=== PATIENT | male | born 1985 | race African-American/Black ===

== ENCOUNTER 2016-12-08 09:27 | Emergency (ER) | payer MEDICAID, OTHER ==
[~2016-12-08] VITALS: Ht 182.9 cm; Wt 122.5 kg
[~2016-12-08 09:27] MED LIST: NORCO 5-325 TA1 EACH ORAL
[2016-12-08] MEDS ORDERED: NKM (09:41)
[2016-12-08 10:01] LABS: APPEARANCE,URINE SLIGHTLY CLOUDY; KETONES,URINE NEGATIVE (NEGATIVE); LEUKOCYTE ESTERASE ,URINE 1+ (NEGATIVE); NITRITE,URINE NEGATIVE (NEGATIVE); PH,URINE 5 (4.5-8.0); PROTEIN,URINE 2+ (NEGATIVE); UROBILINOGEN,URINE NORMAL MG/DL (0.0-1.0)
[2016-12-08 10:12] LABS: BACTERIA,URINE FEW /HPF; RBC,URINE 60-80 /HPF (0 - 0); SQUAMOUS EPITHELIAL CELL,UR OCCASIONAL /LPF (NONE/OCC)
[2016-12-08] MEDS ORDERED: Norco 5mg/325mg tab ORAL ONE (10:15)
[2016-12-08] MEDS ORDERED: DOXYCYCLINE MO100 MG ORAL (11:48)
[2016-12-08] MEDS ORDERED: ACETAMINOPHEN-1 EAC1 ORAL (11:48)
[2016-12-08 12:06] VITALS: BP 157/102
--- NOTE | 2016-12-08 14:29 | Emergency Room Report ---
History of Present Illness General Chief Complaint: Male Urogenital Problems Source: Patient, Medical Record Present Illness HPI 31-year-old male presents to ED with right-sided testicular pain. States pain started this morning during intercourse. Patient states the pain is a 10 out of 10, sharp, nonradiating. No other aggravating or relieving factors. Patient states last time he had similar presentation he had epididymitis. Was discharged on antibiotics. Denies any discharge or burning urination. No other aggravating or relieving factors. Denies any other associated symptoms Allergies: Coded Allergies: METOCLOPRAMIDE (Unverified Allergy, Intermediate, anxiety, 04/22/14) PENICILLINS (Unverified Allergy, Unknown, 04/22/14) Patient History Past Medical History: none Past Surgical History: none Pertinent Family History: none Social History: Denies: alcohol use, drug use, smoking Immunizations: UTD Reviewed Nursing Documentation: PMH: Agreed, PSxH: Agreed Review of Systems All Other Systems: negative except mentioned in HPI Physical Exam Vital Signs Date Time Temp Pulse Resp B/P Pulse Ox O2 Delivery O2 Flow Rate FiO2 12/08/16 09:38 98.1 113 20 128/101 98 Room Air Sp02 EP Interpretation: reviewed, normal General Appearance: alert, GCS 15, non-toxic, mild distress Head: normocephalic Eyes: bilateral eye PERRL, bilateral eye normal inspection ENT: normal ENT inspection Neck: normal inspection Respiratory: normal inspection Cardiovascular #1: normal inspection Gastrointestinal: normal bowel sounds, non tender, soft, non-distended, no guarding, no rebound Rectal: deferred Genitourinary: other - R testicular pain Musculoskeletal: back normal Neurologic: normal inspection Psychiatric: judgement/insight normal, memory normal, mood/affect normal, no suicidal/homicidal ideation Skin: normal inspection Lymphatic: normal inspection Medical Decision Making Diagnostic Impression: Primary Impression: Epididymitis Additional Impression: Opiate dependence Qualified Codes: F11.29 - Opioid dependence with unspecified opioid-induced disorder ER Course A 31-year-old male presents ED complaining of right testicular pain Differential-epididymitis, testicular torsion, orchitis Patient placed in stretcher. After initial history and physical I ordered UA, pain medications and scrotal ultrasound UA shows some bacteria, some blood Scrotal ultrasound shows epididymal cysts, varicocele, hydrocele. No evidence of torsion On reassessment pain is improved. On discharge patient is requesting Horatio. I reviewed [facility] and patient has multiple prescriptions for narcotic medications being prescribed to him every 2-3 days over the course of several months Diagnosis-epididymitis, opioid dependence Discharged with prescription for doxycycline. Followup with PMD. Return to ED if symptoms recur or worsen Labs Test 12/08/16 09:37 Urine Color Brown Urine Appearance Slightly cloudy Urine pH 5 (4.5-8.0) Urine Specific [place] 1.025 (1.005-1.035) Urine Protein 2+ (NEGATIVE) Urine Glucose (UA) Negative (NEGATIVE) Urine Ketones Negative (NEGATIVE) Urine Occult Blood 5+ (NEGATIVE) Urine Nitrite Negative (NEGATIVE) Urine Bilirubin Negative (NEGATIVE) Urine Urobilinogen Normal MG/DL (0.0-1.0) Urine Leukocyte Esterase 1+ (NEGATIVE) Urine RBC 60-80 /HPF (0 - 0) Urine WBC 2-4 /HPF (0 - 0) Urine Squamous Epithelial Cells Occasional /LPF Urine Bacteria Few /HPF (NONE) CT/MRI/US Diagnostic Results CT/MRI/US Diagnostic Results : Imaging Test Ordered: scrotal US Impression varicocele, hydrocele. epididymal cyst. no torsion Last Vital Signs Date Time Temp Pulse Resp B/P Pulse Ox O2 Delivery O2 Flow Rate FiO2 12/08/16 12:06 94 18 157/102 98 Room Air 12/08/16 12:06 97.1 Status: improved Disposition: HOME, SELF-CARE Condition: Stable Scripts Acetaminophen With Codeine (T#3) (TYLENOL #3 TAB*) Y Tab 1 TAB ORAL Q8H Y for For Pain, #20 TAB Prov: JOAQUIM SPENCER M.D. 12/08/16 Doxycycline Monohydrate* (DOXYCYCLINE MONOHYDRATE*) 100 Mg Capsule 100 MG ORAL Q12H, #14 CAP 0 Refills Prov: JOAQUIM SPENCER M.D. 12/08/16 Patient Instructions: Epididymitis JOAQUIM SPENCER M.D. Dec 08, 2016 14:29
--- NOTE | 2016-12-08 15:00 | Diagnostic Imaging Report ---
Indications: Right testicular pain Technique: Grayscale and duplex images of the scrotum Comparison:None Findings:The right testicle measures 3.3cm in length. It demonstrates normal echogenicity. Normal Doppler flow. There is a small cyst within the epididymal head. Is a small varicocele The left testicle measures 3.6 cm in length. It demonstrates normal echogenicity and normal Doppler flow. Normal epididymis. There is a small varicocele and small hydrocele Impression: No acute abnormality Bilateral small varicoceles Small left hydrocele Cyst within the right epididymal head, either a small spermatocele or epididymal cyst
== END 2016-12-08 12:09 | disposition home or self-care (01) ==
LOC: EMR 09:59
DX: N45.1 Epididymitis (principal); F11.29 Opioid dependence with unspecified opioid-induced disorder; Z88.6 Allergy status to analgesic agent
CPT/HCPCS: 76870; 81003; 99284

== ENCOUNTER 2019-09-19 15:40 | Emergency (ER) | payer OTHER ==
[~2019-09-19] VITALS: Ht 182.9 cm; Wt 124.7 kg
[~2019-09-19 15:40] MED LIST changes: +ACETAMINOPHEN-1 EAC1 ORAL; +DOXYCYCLINE MO100 MG ORAL; +NKM
[2019-09-19] MEDS ORDERED: Morphine Sulfate 2mg/ml Inj(IV/IM USE ONLY) IVP ONE ×2 (16:15→18:15)
--- NOTE | 2019-09-19 16:37 | NUR ---
ED Nurse Note: bedside ultrasound being done.
--- NOTE | 2019-09-19 16:39 | Emergency Room Report ---
History of Present Illness General Chief Complaint: Male Urogenital Problems Present Illness HPI 33-year-old male with history of right-sided testicular torsion x2 years, here complaining of sudden onset of right-sided testicular pain that is radiating to right lower quadrant that started after intercourse last night. Patient reports that it happened around 11 PM last night. Patient reports that the pain got worse this morning. Patient came to the emergency room at 400 in the afternoon today. Denies painful urination, frequency, hematuria, penile discharge. Patient reports that the last torsion that he had he had a orchiopexy. Denies fever and chills, diffuse abdominal pain, nausea vomiting. Patient is rating pain 10 out of 10, sitting uncomfortably. Has not taken medication for symptom relief. Patient was seen by me at 4:05 PM and ultrasound was contacted at same time to come in. Ultrasound was at bedside at 4:[address] Cohen also examined the patient with me at 4:[address] Garner was contacted at 4:12 PM and told that he will wait for testicular ultrasound results. Upon examination cremasteric reflex was intact. (Kasia King) Allergies: Coded Allergies: METOCLOPRAMIDE (Unverified Allergy, Intermediate, anxiety, 04/22/14) PENICILLINS (Unverified Allergy, Unknown, 04/22/14) Patient History Past Medical History: see triage record Past Surgical History: unable to obtain Pertinent Family History: none Immunizations: UTD Reviewed Nursing Documentation: PMH: Agreed; PSxH: Agreed (Kasia King) Review of Systems All Other Systems: negative except mentioned in HPI (Kasia King) Physical Exam Vital Signs Date Time Temp Pulse Resp B/P (MAP) Pulse Ox O2 Delivery O2 Flow Rate FiO2 09/19/19 15:54 97.9 98 18 173/109 (130) 94 Room Air Sp02 EP Interpretation: abnormal - elevated BP General Appearance: no apparent distress, alert, GCS 15, non-toxic, moderate distress Head: normocephalic, atraumatic Eyes: bilateral eye normal inspection, bilateral eye PERRL ENT: hearing grossly normal, normal pharynx, no angioedema, normal voice Neck: full range of motion, supple/symm/no masses Respiratory: chest non-tender, lungs clear, normal breath sounds, no rhonchi, no wheezing, speaking full sentences Cardiovascular #1: regular rate, rhythm, no edema, no murmur, normal capillary refill Gastrointestinal: normal inspection, normal bowel sounds, non tender, soft, no mass, no organomegaly, no peritonitis, no bruit Genitourinary: no CVA tenderness, other - possible torsion right scrotum, scrotal swelling, ceremasteric reflex intact Musculoskeletal: back normal, digits/nails normal, gait/station normal, normal range of motion Neurologic: alert, oriented x3, responsive, motor strength/tone normal, sensory intact, speech normal Psychiatric: judgement/insight normal, memory normal, mood/affect normal, no suicidal/homicidal ideation Skin: no rash Lymphatic: no adenopathy (Kasia King) Procedures Critical Care Time Critical Care Time Given the critical condition in which the patient arrived, the patient was immediately assessed by myself and the nurse, and cardiac monitoring initiated due to the potential for rapid decompensation of the patient's clinical condition. During the course of the patient's stay, I spent a considerable amount of time at the bedside performing serial re-evaluations of the patient's hemodynamic and clinical status because of the recognized potential threat to life or limb in this condition. I then had a chance to review not only all of the available current laboratory and radiographic studies obtained today, but I also reviewed old records available to me at the time. Additionally, any ancillary information available including senior staff specialized employment records were reviewed. Sequential vital signs were obtained. Critical Care time of 34 minutes was performed exclusive of billable procedures. (Stephan Cohen MD) Medical Decision Making PA Attestation Diagnosis and treatment plans were reviewed and discussed with my supervising physician Dr. Cohen (Kasia King) Diagnostic Impression: Primary Impression: Varicocele Additional Impression: Testicular pain, left ER Course 33-year-old male with history of right-sided testicular torsion x2 years, here complaining of sudden onset of right-sided testicular pain that is radiating to right lower quadrant that started after intercourse last night. Patient reports that it happened around 11 PM last night. Patient reports that the pain got worse this morning. Patient came to the emergency room at 400 in the afternoon today. Denies painful urination, frequency, hematuria, penile discharge. Patient reports that the last torsion that he had he had a orchiopexy. Denies fever and chills, diffuse abdominal pain, nausea vomiting. Patient is rating pain 10 out of 10, sitting uncomfortably. Has not taken medication for symptom relief. Patient was seen by me at 4:05 PM and ultrasound was contacted at same time to come in. Ultrasound was at bedside at 4:[address] Cohen also examined the patient with me at 4:[address] Garner was contacted at 4:12 PM and told that he will wait for testicular ultrasound results. Upon examination cremasteric reflex was intact. Ddx considered but are not limited to: appendicitis, testicular torsion, epididymitis, varicocele, hydrocele, inguinal hernia Vital signs: are WNL, pt. is afebrile H&PE are most consistent with: varicocele ORDERS: Preop examination and orders, scrotal ultrasound ED INTERVENTIONS: Morphine, Zofran, NS bolus Patient was admited with diagnosis of to Dr. Patricio under supervision of : Vicki pt stable at time of admission . Dr. Garner was consulted. possible time for salvation of testicles, pt to go to OR (Kasia King) ER Course I saw and evaluated the patient and discussed the care with Kasia MERLOS on 09/19/2019. I agree with the findings and plan as documented in the note. Patient with an intact cremasteric reflex, no engorgement of the left testicle, no redness, ultrasound shows flow to the left testicle Urology Dr. Bonilla was emergently consulted refer to note time called, will come evaluate patient Patient will be admitted to Dr. Peña for serial exams Patient given multiple rounds of pain medications, preop labs ordered. Will defer further management to Urology. Patient remains stable. (Stephan Cohen MD) EKG Diagnostic Results Rate: normal Rhythm: NSR ST Segments: no acute changes Other Impression no acute ST changes (Kasia King) Chest X-Ray Diagnostic Results Chest X-Ray Diagnostic Results : Chest X-Ray Ordered: Yes # of Views/Limited/Complete: 1 View Indication: Other EP Interpretation: Yes PA Xray: Interpretation reviewed, by supervising MD, and agrees with findings. Interpretation: no consolidation, no effusion, no pneumothorax Impression: No acute disease Electronically Signed by: Kasia Harry PA-C (Kasia King) CT/MRI/US Diagnostic Results CT/MRI/US Diagnostic Results : Imaging Test Ordered: Testicular ultrasound Impression No evidence of torsion noted, varicocele noted (Kasia King) Last Vital Signs Date Time Temp Pulse Resp B/P (MAP) Pulse Ox O2 Delivery O2 Flow Rate FiO2 09/19/19 15:54 97.9 98 18 173/109 (130) 94 Room Air (Kasia King) Disposition: ADMITTED INPATIENT Condition: Stable Kasia King Sep 19, 2019 16:39 Stephan Cohen MD Sep 19, 2019 18:14
[2019-09-19 16:45] VITALS: BP 134/86
[2019-09-19 16:52] LABS: BASOPHILS % (AUTO) 1.7 % (0.0-2.0); EOSINOPHILS % (AUTO) 3.9 % (0.0-3.0); HEMATOCRIT 43.4 % (42.0-52.0); LYMPHOCYTES % (AUTO) 38.2 % (20.0-45.0); MEAN CORPUSCULAR VOLUME 85 FL (80-99); MONOCYTES % (AUTO) 3.6 % (1.0-10.0); NEUTROPHILS % (AUTO) 52.6 % (45.0-75.0); PLATELET COUNT 191 K/UL (150-450); RED BLOOD COUNT 5.09 M/UL (4.70-6.10); RED CELL DISTRIBUTION WIDTH 11.7 % (11.6-14.8); WHITE BLOOD COUNT 5.5 K/UL (4.8-10.8)
[2019-09-19 17:10] LABS: ANION GAP 11 mmol/L (5-15); BLOOD UREA NITROGEN 14 mg/dL (7-18); CALCIUM 8.6 MG/DL (8.5-10.1); CARBON DIOXIDE 25 MMOL/L (21-32); CHLORIDE 105 MMOL/L (98-107); CREATININE 1.4 MG/DL (0.55-1.30); POTASSIUM 3.4 MMOL/L (3.5-5.1); SODIUM 141 MMOL/L (136-145)
[2019-09-19 17:15] LABS: ALANINE AMINOTRANSFERASE 24 U/L (12-78); ALBUMIN 3.9 G/DL (3.4-5.0); ALKALINE PHOSPHATASE 78 U/L (46-116); ASPARTATE AMINO TRANSFERASE 19 U/L (15-37); BILIRUBIN,TOTAL 0.3 MG/DL (0.2-1.0)
--- NOTE | 2019-09-19 17:18 | NUR ---
ED Nurse Note: pt with type and screen obtained and sent.
[2019-09-19] MEDS ORDERED: cefTRIAXone 1 GM in NS 55 ML IVPB ONE (17:30)
[2019-09-19] MEDS ORDERED: Doxycycline Hyclate 100 MG in D5W 110 ML IVPB SCH (17:30)
--- NOTE | 2019-09-19 17:31 | Diagnostic Imaging Report ---
Indication:Scrotal pain Technique: Real time grayscale and duplex Doppler imaging of the scrotum performed. Comparison: None Findings: The size, contour, and echogenicitiy of the testis appear normal bilaterally. There is no testicular mass or evidence of torsion. There is good doppler evidence of blood flow within both testes. Epididimi are unremarkable. Left testis 3.4 x 1.9 x 2.3 cm. Right testis is 3.7 x 2.7 x 1.9 cm. 4 mm right epididymal cyst noted. Impression: Negative scrotal ultrasound. No evidence of testicular mass or torsion
[2019-09-19] MEDS ORDERED: Tylenol #3 tab (300mg/30mg) ORAL PRN (18:45)
[2019-09-19] MEDS ORDERED: Morphine Sulfate 2mg/ml Inj(IV/IM USE ONLY) IVP PRN (18:45)
--- NOTE | 2019-09-19 18:46 | NUR ---
ED Nurse Note: ed md in to speak with pt as he doesnt want admission to hospital. pt relates pain has decreased. tolerates abx well.
[2019-09-19] MEDS ORDERED: D5NS 1,000 ML IV SCH (19:15)
--- NOTE | 2019-09-19 19:15 | NUR ---
AMA: SEE AMA FORM. pt amb steady gait out of ed without c/o. a/ox4. angio out intactly
[2019-09-19 19:17] VITALS: BP 134/86
[2019-09-19 19:57] LABS: APPEARANCE,URINE CLEAR; BILIRUBIN, URINE NEGATIVE (NEGATIVE); COLOR,URINE PALE YELLOW; GLUCOSE, URINE (UA) NEGATIVE (NEGATIVE); KETONES,URINE NEGATIVE (NEGATIVE); LEUKOCYTE ESTERASE ,URINE NEGATIVE (NEGATIVE); NITRITE,URINE NEGATIVE (NEGATIVE); PH,URINE 7 (4.5-8.0); PROTEIN,URINE NEGATIVE (NEGATIVE); UROBILINOGEN,URINE NORMAL MG/DL (0.0-1.0)
[2019-09-19] MEDS ORDERED: Heparin 5000 units/ml inj SUBQ SCH (21:00)
--- NOTE | 2019-09-20 14:47 | Diagnostic Imaging Report ---
Indication: Chest pain Comparison: None A single view chest radiograph was obtained. Findings: Cardiomediastinal appearance is within normal limits for age. The lungs are clear. Pulmonary vascularity is appropriate. The diaphragmatic contour is smooth and costophrenic angles are sharp. No pleural effusions are identified. The bones are unremarkable. Impression: No acute findings
== END 2019-09-19 19:18 | disposition left against medical advice (07) ==
LOC: EMR 16:05 → UNDOADMIN 17:50 → 3E 17:50 → EDBEDREQ 18:10
DX: I86.1 Scrotal varices (principal); N50.811 Right testicular pain; Z88.0 Allergy status to penicillin; Z88.8 Allergy status to other drugs, medicaments and biological substances
CPT/HCPCS: 36415; 71045; 76870; 80053; 81003; 85025; 85610; 85730; 93005; 96361; 96365; 96366; 96368; 96375; J0696; J2270; J2405; J3490; Z7502; 86850; 86900; 86901; 99291; J7030

== ENCOUNTER 2019-11-04 17:56 | Emergency (ER) | payer OTHER ==
[~2019-11-04] VITALS: Ht 182.9 cm; Wt 124.7 kg
[2019-11-04 18:10] VITALS: BP 112/84
[2019-11-04] MEDS ORDERED: Morphine Sulfate 2mg/ml Inj(IV/IM USE ONLY) IVP ONE (19:15)
[2019-11-04 19:29] LABS: APPEARANCE,URINE CLOUDY; BILIRUBIN, URINE NEGATIVE (NEGATIVE); COLOR,URINE PALE YELLOW; GLUCOSE, URINE (UA) NEGATIVE (NEGATIVE); KETONES,URINE 1+ (NEGATIVE); LEUKOCYTE ESTERASE ,URINE NEGATIVE (NEGATIVE); NITRITE,URINE NEGATIVE (NEGATIVE); PH,URINE 5 (4.5-8.0); PROTEIN,URINE 2+ (NEGATIVE); UROBILINOGEN,URINE NORMAL MG/DL (0.0-1.0)
[2019-11-04] MEDS ORDERED: Phenazopyridine 200mg tab ORAL ONE (20:00)
--- NOTE | 2019-11-04 20:11 | Emergency Room Report ---
History of Present Illness General Chief Complaint: Male Urogenital Problems Source: Patient Present Illness HPI 34 YO Male presents to the ED c/o 08/18 in severity acute onset of right testicular pain since 2pm today. He reports pain and tenderness primarily in the right testicle with radiation upward into his abdomen on the right side. He denies notable testicular pain. reports hx of Torsion in 2018 when he was in [place]. Patient denies any discharge. Denies testicular swelling. He denies hematuria, urinary frequency or urgency. He reports moderate dysuria. Pt. admits to not following up with urology after previous ED visits, and therefore does not have a urologist who has been overseeing his frequent urological problems. Pt. denies abdominal distention or inability to urinate. He denies low back pain or migration of his pain. Denies hx of hernia or recent heavy lifting. He reports unprotected intercourse with his only. Denies fevers, chills, nausea or vomiting. He denies constipation, diarrhea or abdominal tenderness at this time. Allergies: Coded Allergies: METOCLOPRAMIDE (Unverified Allergy, Intermediate, anxiety, 04/22/14) PENICILLINS (Unverified Allergy, Unknown, 04/22/14) Patient History Past Medical History: see triage record, other - torsion in 2018 Past Surgical History: none Pertinent Family History: none Reviewed Nursing Documentation: PMH: Agreed; PSxH: Agreed Nursing Documentation-PMH Past Medical History: No History, Except For Review of Systems All Other Systems: negative except mentioned in HPI Physical Exam Vital Signs Date Time Temp Pulse Resp B/P (MAP) Pulse Ox O2 Delivery O2 Flow Rate FiO2 11/04/19 18:10 98.0 98 22 112/84 97 Room Air Sp02 EP Interpretation: reviewed, normal General Appearance: alert, GCS 15, non-toxic, mild distress Head: normocephalic, atraumatic Eyes: bilateral eye normal inspection, bilateral eye PERRL ENT: hearing grossly normal, normal voice Neck: full range of motion Respiratory: lungs clear, normal breath sounds, speaking full sentences Cardiovascular #1: regular rate, rhythm Gastrointestinal: normal bowel sounds, non tender, soft, non-distended, no guarding, no hernia Rectal: deferred Genitourinary: normal inspection, no CVA tenderness, other - TTP to the right testicle, no visible swelling. No erythema, rashes or warmth. No penile lesions or d/c. The cremasterics reflex is intact and phren sign is negative there is no relief upon elevation. No palpable hernia. No appreciable RLQ tenderness or abdominal distention Musculoskeletal: normal range of motion, gait/station normal, non-tender Neurologic: alert, oriented x3, sensory intact, responsive, speech normal Psychiatric: judgement/insight normal Skin: no rash, normal color, normal inspection Lymphatic: no adenopathy Medical Decision Making PA Attestation Dr. Cohen Is my supervising Physician whom patient management has been discussed with. Diagnostic Impression: Primary Impression: UTI (urinary tract infection) Qualified Codes: N30.01 - Acute cystitis with hematuria Additional Impression: Testicular pain, right ER Course 34 YO Male presents to the ED c/o 08/18 in severity acute onset of right testicular pain since 2pm today. He reports pain and tenderness primarily in the right testicle with radiation upward into his abdomen on the right side. He denies notable testicular pain. reports hx of Torsion in 2018 when he was in [place]. Patient denies any discharge. Denies testicular swelling. He denies hematuria, urinary frequency or urgency. He reports moderate dysuria. Pt. admits to not following up with urology after previous ED visits, and therefore does not have a urologist who has been overseeing his frequent urological problems. Pt. denies abdominal distention or inability to urinate. He denies low back pain or migration of his pain. Denies hx of hernia or recent heavy lifting. He reports unprotected intercourse with his only. Denies fevers, chills, nausea or vomiting. He denies constipation, diarrhea or abdominal tenderness at this time. Ddx considered but are not limited to testicular torsion, epididymitis, orchitis , abscess, hernia, appendicitis, renal calculi, urinary obstruction Vital signs: are WNL, pt. is afebrile H&PE are most consistent with acute onset testicular pain in pt. with hx of torsion. The cremasterics reflex is intact and then sign is negative there is no relief upon elevation. No palpable hernia. No appreciable RLQ tenderness or abdominal distention. NO evidence to suggest acute abdomen or urinary retention at this time. Dysuria suggests urethritis. ORDERS: -UA: RBC's and blood along with bacteria. - Testicular ultrasound: "Normal testicular ultrasound blood flow is present no masses, epididymides are unremarkable and scrotum is unremarkable." Per official radiology report- Please see report for specific details. ED INTERVENTIONS: -6mg Morphine IM -Pyridium 200mg PO pt. encouraged to drink plenty of water. He is given strict ED return precautions for worsening or new symptoms. -Review of [facility] web-site : This patient has many recent opiate prescriptions that have been filled all have been prescribed by multiple different providers, and multiple times in 1 month. Most recent fill was October 10. DISCHARGE: At this time pt. is stable for d/c to home with very close outpatient Urology follow up. Will provide printed patient care instructions, and any necessary prescriptions. Care plan and follow up instructions have been discussed with the patient prior to discharge. Labs Test 11/04/19 19:00 Urine Color Pale yellow Urine Appearance Cloudy Urine pH 5 (4.5-8.0) Urine Specific [place] 1.020 (1.005-1.035) Urine Protein 2+ (NEGATIVE) Urine Glucose (UA) Negative (NEGATIVE) Urine Ketones 1+ (NEGATIVE) Urine Blood 5+ (NEGATIVE) Urine Nitrite Negative (NEGATIVE) Urine Bilirubin Negative (NEGATIVE) Urine Urobilinogen Normal MG/DL (0.0-1.0) Urine Leukocyte Esterase Negative (NEGATIVE) Urine RBC Tntc /HPF (0 - 0) Urine WBC 0 /HPF (0 - 0) Urine Squamous Epithelial Cells Occasional /LPF Urine Bacteria Moderate /HPF (NONE) CT/MRI/US Diagnostic Results CT/MRI/US Diagnostic Results : Imaging Test Ordered: Testicular US Impression "Normal testicular ultrasound blood flow is present no masses, epididymides are unremarkable and scrotum is unremarkable." Per official radiology report- Please see report for specific details. Last Vital Signs Date Time Temp Pulse Resp B/P (MAP) Pulse Ox O2 Delivery O2 Flow Rate FiO2 11/04/19 19:50 97.9 11/04/19 18:19 84 16 161/112 (128) 96 Room Air Disposition: HOME, SELF-CARE Condition: Stable Scripts Ibuprofen* (MOTRIN*) 600 Mg Tablet 600 MG ORAL THREE TIMES A DAY, #30 TAB 0 Refills Prov: Edna Hansen 11/04/19 Phenazopyridine Hcl* (PYRIDIUM*) 100 Mg Tablet 100 MG ORAL THREE TIMES A DAY, #9 TAB Prov: Edna Hansen 11/04/19 Doxycycline Hyclate* (VIBRAMYCIN*) 100 Mg Capsule 100 MG ORAL EVERY 12 HOURS for 7 Days, #14 CAP 0 Refills Prov: Edna Hansen 11/04/19 Referrals: NON PHYSICIAN (PCP) Patient Instructions: Urethritis, Adult, Urinary Tract Infection Edna Hansen Nov 04, 2019 20:11
[2019-11-04] MEDS ORDERED: VIBRAMYCIN100 MG ORAL (20:12)
[2019-11-04] MEDS ORDERED: PHENAZOPYRIDIN100 MG ORAL (20:12)
[2019-11-04] MEDS ORDERED: IBUPROFEN600 MG ORAL (20:12)
[2019-11-04] MEDS ORDERED: Lidocaine 1% MPF 10mg/ml 5ml INJ ONE (20:15)
[2019-11-04 20:25] VITALS: BP 161/112
--- NOTE | 2019-11-04 20:32 | Diagnostic Imaging Report ---
EXAM: US Scrotum CLINICAL HISTORY: PAIN TECHNIQUE: Real-time ultrasound of the scrotum with color Doppler and image documentation. COMPARISON: No relevant prior studies available. FINDINGS: Right testicle: The right testicle measures 2.7 x 2.7 x 2.6 cm. Blood flow is present. No mass. Left testicle: The left testicle measures 3.3 x 1.9 x 2.4 cm. Blood flow is present. No mass. Epididymides: Unremarkable. Scrotum: Unremarkable. IMPRESSION: Normal testicular ultrasound.
== END 2019-11-04 20:25 | disposition home or self-care (01) ==
LOC: EMR 18:40
DX: N30.01 Acute cystitis with hematuria (principal); N50.811 Right testicular pain; Z88.0 Allergy status to penicillin; Z88.8 Allergy status to other drugs, medicaments and biological substances
CPT/HCPCS: 76870; 81003; 87086; 96372; 96374; J0696; J2270; Z7502; 99284